=== PATIENT | male | born 1985 | race Hispanic/Latino ===

== ENCOUNTER 2017-03-30 13:27 | Emergency (ER) | payer BC ==
[2017-03-30 14:14] LABS: BILIRUBIN,URINE SMALL (NEG); CLARITY,URINE CLEAR (CLEAR); GLUCOSE, URINE (UA) NEGATIVE (NEG); NITRATE,URINE NEGATIVE (NEG); OCCULT BLOOD,URINE NEGATIVE (NEG); PROTEIN,URINE 30 mg/dl (NEG)
[2017-03-30 14:19] LABS: COLOR,URINE AMBER
[2017-03-30 14:28] VITALS: RESP 16; TEMP 97.7
[2017-03-30 14:29] LABS: SQUAMOUS EPITHELIAL CELL,UR RARE; URINE SAMPLE TYPE CLEAN CATCH URINE; WBC,URINE 0-1
--- NOTE | 2017-03-30 15:09 | DI ---
AP PELVIS and RIGHT HIP, 03/30/2017 2:06 PM: Clinical History: Trauma. Previous Exam: None at this facility. There is no soft tissue abnormality. The bony structures of the pelvis are normal. 2 views of the rig ht hip are normal. Readin. There is no fracture or dislocation of the right hip. 2. The AP pelvis view is unremarkable.
--- NOTE | 2017-03-30 15:45 | DI ---
LUMBAR SPINE SERIES, 03/30/2017 2:07 PM: Clinical History: Trauma. Previous Exam: None at this facility. Upright AP and lateral views are submitted. The vertebral bodies are of normal height and size. Mild disc space narrowing is present at L3-4. The remaining disc spaces are of normal height. There is bon y spurring along the anterior and superior margin of the body of L4. There is no acute fracture or di slocation. The pedicles and posterior elements are unremarkable. Both SI joints are normal. Readin. There is no acute fracture or dislocation. 2. Mild chronic L3-4 disc space narrowing.
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
== END 2017-03-30 15:35 | disposition home or self-care (01) ==
LOC: ER 13:27
DX: M54.5 Low back pain (principal); M25.551 Pain in right hip; Z72.0 Tobacco use; W50.0XXA Accidental hit or strike by another person, initial encounter
CPT/HCPCS: 72100; 73502; 81001; 99283